=== PATIENT | female | born 1975 | race Caucasian/White ===

== ENCOUNTER → 2017-09-26 | Outpatient (CLI) | payer BC ==
--- NOTE | 2017-09-26 09:06 | Diagnostic Imaging Report ---
INDICATION: Routine screening. COMPARISON: 10/13/2015. TECHNIQUE: 2D and 3D bilateral screening mammography was performed with CAD. FINDINGS: Scattered fibroglandular densities are identified bilaterally. There are some calcifications which have developed since 2016 in the upper and outer aspect of the right breast at posterior depth. Additional views are recommended. The left breast is unremarkable. No mass is seen. The axillae are unremarkable. IMPRESSION: Right breast calcifications. Additional views are recommended. ACR BI-RADS Category 0: Incomplete. (Needs additional imaging evaluation). Result letter will be mailed to the patient. Note: At least 10% of breast cancer is not imaged by mammography. Dictated by: Dictated on workstation # [id number]
== END ==
LOC: RAD 07:18
PROVIDERS: ATTEND Family Medicine
DX: Z12.31 Encounter for screening mammogram for malignant neoplasm of breast (principal); R92.1 Mammographic calcification found on diagnostic imaging of breast
CPT/HCPCS: 77067

== ENCOUNTER → 2017-10-14 | Outpatient (CLI) | payer BC ==
--- NOTE | 2017-10-14 13:09 | Diagnostic Imaging Report ---
Indication: Right breast calcifications. Patient presents for additional views. Correlation is made with recent screening study from 09/26/2017. 2-D and 3-D unilateral right diagnostic mammography was performed including a magnification CC and ML views as well as conventional 90 degree lateral view. There is a cluster of calcifications in the lateral portion of the right breast best seen on the CC view at posterior depth. These appear to be primarily punctate. No definite pleomorphism is seen. No associated soft tissue is seen. No linear branching pattern is seen. Impression: BI-RADS 3 Benign-appearing cluster of microcalcifications in the outer right breast at posterior depth. Even so, followup right mammogram in 6 months is recommended to show continued stability. ACR BI-RADS Category 3: Probably benign findings. Result letter will be mailed to the patient. Note: At least 10% of breast cancer is not imaged by mammography. Dictated by: Dictated on workstation # [id number]
== END ==
LOC: RAD 12:35
PROVIDERS: ATTEND Family Medicine
DX: R92.0 Mammographic microcalcification found on diagnostic imaging of breast (principal)

== ENCOUNTER → 2018-04-27 | Outpatient (CLI) | payer BC ==
--- NOTE | 2018-04-27 20:00 | Diagnostic Imaging Report ---
INDICATION: Six-month followup right breast calcifications. COMPARISON: Correlation is made with prior mammograms of 10/14/2017 and 09/26/2017. EXAMINATION: Unilateral right 2D and 3D diagnostic mammography was performed. The current study was also evaluated with a Computer Aided Detection (CAD) system. FINDINGS: Cluster microcalcifications in the outer right breast, posterior depth, appear stable. No new mass or malignant appearing microcalcifications are seen. Right axilla is unremarkable. IMPRESSION: BI-RADS 2. Stable right breast calcifications. These have a fairly benign appearance. Patient should return in six months for bilateral screening mammography. ACR BI-RADS Category 2: Benign findings. Result letter will be mailed to the patient. Note: At least 10% of breast cancer is not imaged by mammography. Dictated by: Dictated on workstation # [id number]
== END ==
LOC: RAD 12:21
PROVIDERS: ATTEND Family Medicine
DX: R92.1 Mammographic calcification found on diagnostic imaging of breast (principal)

== ENCOUNTER → 2018-10-10 | Outpatient (CLI) | payer BC ==
--- NOTE | 2018-10-10 13:00 | Diagnostic Imaging Report ---
INDICATION: Routine screening. Comparison is made with prior mammograms from 09/26/2017 and 10/13/2015. 2-D and 3-D bilateral screening mammography was performed. The current study was also evaluated with a Computer Aided Detection (CAD) system. 3-D tomosynthesis was also performed and reviewed. FINDINGS: Scattered fibroglandular densities are identified bilaterally. The parenchymal pattern is stable. Previously noted right-sided calcifications appear stable. No new mass or malignant-appearing microcalcifications are seen. Axillae are unremarkable. IMPRESSION: No mammographic features suspicious for malignancy are identified. ACR BI-RADS Category 2: Benign findings. Result letter will be mailed to the patient. Note: At least 10% of breast cancer is not imaged by mammography. Dictated by: Dictated on workstation # [id number]
== END ==
LOC: RAD 07:04
PROVIDERS: ATTEND Family Medicine
DX: Z13.31 Encounter for screening for depression (principal)
CPT/HCPCS: 77067

== ENCOUNTER → 2018-10-13 | Outpatient (CLI) | payer BC ==
--- NOTE | 2018-10-13 16:23 | Diagnostic Imaging Report ---
PROCEDURE: US Non-ob pelvis comp/trans. TECHNIQUE: Multiple realtime grayscale images were obtained of the pelvis in various projections endovaginally. Transabdominal imaging was also performed. INDICATION: Right lower quadrant pain Uterus is surgically absent. There are no pathologic masses or fluid collection seen in the pelvis. There is no free fluid. Neither ovary can be located sonographically because of interposed bowel gas. Impression: No abnormalities seen in the pelvis. Dictated by: Dictated on workstation # [id number]
== END ==
LOC: RAD 15:32
PROVIDERS: ATTEND Family Medicine
DX: R10.32 Left lower quadrant pain (principal); R10.2 Pelvic and perineal pain; Z90.710 Acquired absence of both cervix and uterus
CPT/HCPCS: 76830; 76856

== ENCOUNTER 2018-11-14 05:29 | Outpatient (CLI) | payer BC ==
[~2018-11-14] VITALS: Ht 160 cm; Wt 68.0 kg
[2018-11-14] MEDS ORDERED: MULT-141 PO (12:22)
== END 2018-11-14 12:24 | disposition home or self-care (01) ==
LOC: PREOP 05:29
PROVIDERS: ATTEND Surgery
DX: Z01.818 Encounter for other preprocedural examination (principal)

== ENCOUNTER 2018-11-16 06:55 | Day surgery (SDC) | payer BC ==
[2018-11-16] VITALS (12 sets, daily range): BP systolic 109–140; BP diastolic 58–83
[~2018-11-16] VITALS: Ht 160 cm; Wt 68.0 kg
[~2018-11-16 06:55] MED LIST: MULT-141 PO
[2018-11-16] MEDS ORDERED: LACTATED RINGERS 1,000 ML IV PRN (07:14)
[2018-11-16] MEDS ORDERED: ceFAZolin INJECTION 1,000 MG in WATER (STERILE) FOR INJECTION 10 ML IV ONE (07:15)
[2018-11-16] MEDS ORDERED: BUP/EPI 0.25% 1:200,000 (MARCAINE) 10 ML VIAL IJ ONE (07:24)
[2018-11-16] MEDS ORDERED: CATHETER FLUSH 10 ML SYR IV PRN (07:30)
[2018-11-16] MEDS ORDERED: ROCURONIUM 10 MG/ML 5 ML SYRINGE IV ONE (07:32)
[2018-11-16] MEDS ORDERED: proPOfol 200 MG/20 ML (DIPRIVAN) VIAL IV ONE (07:32)
[2018-11-16] MEDS ORDERED: LIDOCAINE PF 2% 5 ML (XYLOCAINE) VIAL ONE (07:32)
[2018-11-16] MEDS ORDERED: SEVOFLURANE (ULTANE) 15 ML INHAL SOLN ONE ×3 (07:32→09:53)
[2018-11-16] MEDS ORDERED: DEXAMETHASONE 10 MG/ML (DECADRON) 1 ML VIAL ONE (07:32)
[2018-11-16] MEDS ORDERED: ONDANSETRON 4 MG/2 ML (SDV) Z0FRAN ONE (07:32)
[2018-11-16] MEDS ORDERED: MIDAZOLAM 2 MG/2 ML (VERSED) VIAL ONE (07:33)
[2018-11-16] MEDS ORDERED: fentaNYL INJECTION 100 MCG/2 ML AMP ONE (07:33)
[2018-11-16] MEDS ORDERED: CETI10TA20 PO (07:43)
--- NOTE | 2018-11-16 08:14 | Progress Note-Pre Operative ---
Pre-Operative Progress Note H&P Reviewed The H&P was reviewed, patient examined and no changes noted. Date Seen by Provider: Nov 16, 2018 Time Seen by Provider: 08:10 Date H&P Reviewed: Nov 16, 2018 Time H&P Reviewed: 08:05 Pre-Operative Diagnosis: RLQ pain, Chronic appendicitis MARY ELLEN HERNÁNDEZ APRN Nov 16, 2018 08:14
[2018-11-16] MEDS ORDERED: ONDANSETRON 4 MG/2 ML (SDV) Z0FRAN IVP PRN ×2 (08:15→10:15)
[2018-11-16] MEDS ORDERED: ACETAMINOPHEN 325 MG TABLET PO PRN (08:15)
[2018-11-16] MEDS ORDERED: morphine INJ 10 MG/ML 1ML (SYR OR VIAL) IVP PRN (08:15)
[2018-11-16] MEDS ORDERED: HYDROcodone/APAP 5 MG/325 MG (LORTAB) TAB PO ONE (08:15)
[2018-11-16] MEDS ORDERED: HYDR-3816 PO (08:17)
--- NOTE | 2018-11-16 08:19 | Discharge Inst-Surgical ---
D/C Lap Instructions-KIDO Reconcile Patient Problems Problems Reviewed?: Yes New, Converted, or Re-Newed RX: RX on Chart Follow Up Appt in 2 weeks Activity as tolerated No driving for 24 hours No driving while on pain medications Incentive Spirometry use every 2 hours while awake Regular Diet Symptoms to Report: Fever over 101 degree F, Nausea/Vomiting Infection Signs and Symptoms to report: Increased redness, Foul odor of wound, Increased drainage Bathing instructions: May shower Operative Area Clean/Dry; Keep incision clean/dry If any problems/questions: Contact your physician or go to Emergency Room MARY ELLEN HERNÁNDEZ APRN Nov 16, 2018 08:19
--- NOTE | 2018-11-16 09:55 | Progress Note-Post Operative ---
Post-Operative Progess Note Surgeon (s)/Senior Manufacturing Supervisor (s) Surgeon AMX GALLAGHER MD Senior Manufacturing Supervisor: samia swain ENVIRONMENTAL STUDIES PROGRAM DIRECTOR Pre-Operative Diagnosis RLQ pain, Chronic appendicitis Post-Operative Diagnosis same Procedure & Operative Findings Date of Procedure 11/16/18 Procedure Performed/Findings diagnostic laparoscopy and laparoscopic appendectomy. Anesthesia Type get Estimated Blood Loss Estimated blood loss (mL): minimal Specimens/Packing Specimens Removed pelvic washings, appendix MAX GALLAGHER MD Nov 16, 2018 09:55
[2018-11-16] MEDS ORDERED: KETOROLAC 30 MG/ML VIAL ONE (10:00)
[2018-11-16] MEDS ORDERED: HYDROmorphone 2 MG/ML VIAL (DILAUDID) ONE (10:13)
[2018-11-16] MEDS ORDERED: HYDROmorphone 2 MG/ML VIAL (DILAUDID) IV ONE (10:15)
[2018-11-16] MEDS ORDERED: morphine INJ 10 MG/ML 1ML (SYR OR VIAL) IVP ONE (10:15)
[2018-11-16] MEDS ORDERED: KETOROLAC 30 MG/ML VIAL IVP ONE (10:15)
--- NOTE | 2018-11-16 13:20 | Anesthesia-General Post-Op ---
General Patient Condition Mental Status/LOC: Same as Preop Cardiovascular: Satisfactory Nausea/Vomiting: Absent Respiratory: Satisfactory Pain: Controlled Complications: Absent Post Op Complications Complications None Follow Up Care/Instructions Patient Instructions None needed. Anesthesia/Patient Condition Patient Condition Patient is doing well, no complaints, stable vital signs, no apparent adverse anesthesia problems. No complications reported per nursing. PATTI PANDYA CRNA Nov 16, 2018 13:20
--- NOTE | 2018-11-16 13:53 | OPERATIVE REPORT ---
DATE OF SERVICE: 11/16/2018 ATTENDING PRIMARY CARE PHYSICIAN: Dr. Justice Suazo. PREOPERATIVE DIAGNOSIS: Intermittent right lower abdominal quadrant pain, chronic appendicitis. POSTOPERATIVE DIAGNOSIS: Intermittent right lower abdominal quadrant pain, chronic appendicitis. PROCEDURE: Diagnostic laparoscopy and laparoscopic appendectomy. SURGEON: Max Gallagher MD FABRICATING MACHINE OPERATOR: Mitchell Peace APRN ANESTHESIA: General endotracheal. ESTIMATED BLOOD LOSS: Minimal. FINDINGS: Surgical changes consistent with hysterectomy, bilateral ovaries with what appeared to be small cyst that is adjacent to the right ovary. The appendix grossly looked normal. DISPOSITION: The patient tolerated the procedure well. INDICATIONS: The patient is a 43-year-old female with a one year history of intermittent pain in the right lower abdominal quadrant. She was seen by her primary care physician. This was initially thought to be of an ovarian etiology. She underwent a CT scan, which did show a dilated appendix of 14 mm, but there was no definitive appendiceal inflammation seen. There was also a small lesion identified at the tip of the appendix, which may indicate chronic appendiceal inflammation versus a small appendiceal mucocele. DESCRIPTION OF PROCEDURE: The patient was brought to the operating room, laid supine on the table. After adequate IV pain and sedative medications and general endotracheal intubation, the abdomen was prepped and draped in standard surgical fashion. A 0.5% Marcaine with epinephrine was then used to anesthetize the overlying skin in the left upper abdominal quadrant and a transverse skin incision was made using a 15 blade. An 0 silk suture was applied to the medial aspect of the incision for retraction and a Veress needle was inserted with a low opening pressure of 0 mmHg and the abdomen was then insufflated to 15 mmHg pressure. The Veress needle was removed and a 5 mm Xcel trocar was placed followed by a 5 mm 45-degree angle laparoscope visualizing the peritoneal cavity. A 4-quadrant abdominal exploration was performed. There were postsurgical changes consistent with a hysterectomy. Bilateral ovaries were identified. The tube along the right side appeared slightly edematous and there was a small cyst adjacent to this. However, this appeared to be benign. Washings were taken of the bilateral ovaries and pelvis. The appendix looked grossly normal as did the cecum and small bowel. There were no inflammatory changes identified. Under direct visualization, we then proceeded to place a supraumbilical 10 mm port after the skin and peritoneal lining were anesthetized using 0.5% Marcaine with epinephrine and a transverse skin incision was made using a 15 blade. In a similar manner, a suprapubic 5 mm port was placed. The patient was then placed in reverse Trendelenburg position as well as plane right side up, left side down. The appendix was then retracted towards the anterior abdominal wall and a window was then created between the mesoappendix and the appendix at the cecal base using a [place] dissector. The appendix was then stapled and transected at the cecal base using a DENIA 45 mm stapler with 2.5 mm thickness load. The mesoappendix was then stapled and transected with the same stapler with 2.00 mm thickness reload. Good hemostasis was observed. The appendix was removed through the 10 mm port site using an EndoCatch bag. The 10 mm port fascia and peritoneum were then closed under direct visualization using a Km-Agatha device and 0 Vicryl suture. The abdomen was desufflated and the remaining ports were removed. All skin incisions were closed using 4-0 Monocryl running subcuticular sutures. Wounds were then cleaned and covered with Dermabond. The patient tolerated the procedure well. We will start IV and oral pain medication as well as a clear liquid diet. Once she is tolerating clears, has good pain control with oral pain medications, and ambulating well, we will discharge her home. We will also await the pathology results of the washings as well as the appendix. Job ID: [id number] DocumentID: [id number] Dictated Date: 11/16/2018 10:04:48 Maternity Floor Supervisor Date: 11/16/2018 13:52:04 Dictated By: MAX GALLAGHER MD
== END 2018-11-16 13:04 | disposition home or self-care (01) ==
LOC: SDC 06:55
PROVIDERS: ATTEND Surgery
DX: K35.80 Unspecified acute appendicitis (principal); D19.9 Benign neoplasm of mesothelial tissue, unspecified; J30.9 Allergic rhinitis, unspecified; Z90.710 Acquired absence of both cervix and uterus; Z79.899 Other long term (current) drug therapy; Z79.891 Long term (current) use of opiate analgesic; Z80.0 Family history of malignant neoplasm of digestive organs; Z80.3 Family history of malignant neoplasm of breast; Z82.3 Family history of stroke
CPT/HCPCS: 87081; 88112; 88304; 88305

== ENCOUNTER → 2019-10-18 | Outpatient (CLI) | payer BC ==
[~2019-10-18] MED LIST changes: +CETI10TA21 PO; +HYDR-34 PO
--- NOTE | 2019-10-18 10:17 | Diagnostic Imaging Report ---
INDICATION: Routine screening. COMPARISON is made with prior mammograms from 10/10/2018 and 09/26/2017. 2-D and 3-D bilateral screening mammography was performed with CAD. Both breasts are heterogeneously dense, limiting the sensitivity of mammography. Calcifications in the upper right breast appear stable. Breast parenchymal pattern is stable. No mass or malignant appearing microcalcifications are identified. Axillae are unremarkable. IMPRESSION: BI-RADS Category 2. No mammographic features suspicious for malignancy are identified. ACR BI-RADS Category 2: Benign findings. Result letter will be mailed to the patient. Note: At least 10% of breast cancer is not imaged by mammography. Dictated by: Dictated on workstation # [id number]
== END ==
LOC: RAD 07:19
PROVIDERS: ATTEND Family Medicine
DX: Z12.31 Encounter for screening mammogram for malignant neoplasm of breast (principal)
CPT/HCPCS: 77063; 77067